=== PATIENT | male | born 1975 | race Caucasian/White ===

== ENCOUNTER 2017-07-16 15:57 | Emergency (ER) | payer MEDICAID ==
[~2017-07-16] VITALS: Ht 180.3 cm; Wt 81.6 kg
[2017-07-16 15:57] VITALS: BP 144/74
== END 2017-07-16 16:38 | disposition home or self-care (01) ==
LOC: ER 15:58
DX: J32.9 Chronic sinusitis, unspecified (principal); F17.200 Nicotine dependence, unspecified, uncomplicated
CPT/HCPCS: 99283; A4606; Z7610